=== PATIENT | female | born 1965 | race Caucasian/White ===

== ENCOUNTER → 2017-05-11 | Outpatient (CLI) | payer BC ==
[~2017-05-11] MED LIST: AMBIEN 10MG10 MG PO; AMBIEN5 MG PO; ASPIRIN E.C. 8181 MG PO; B-12100 MCG SL; CO Q-1010 M1 PO; COREG12.5 MG PO; CYMBALTA 20MG20 MG PO; CYMBALTA 30MG30 MG PO; CYMBALTA 60MG60 MG PO; DILAUDID 2MG TAB2 MG PO; EFFEXOR 75M75 MG/TAB PO; FISH OIL1000 MG PO; GLUCOPHAGE XR500 M1 PO; LASIX 20MG TABL20 MG PO; LEXAPRO10 MG PO; LIPITOR 10MG10 MG PO; LORTAB 7.5/5001 TAB PO; LYRICA 150MG C150 MG PO; MACROBID 1100 MG/CAP PO; MAXALT10 MG; MICARDIS HCT 251 TAB PO; MICARDIS20 MG PO; MOBIC15 MG PO; MULTIPLE VITAMI1 CAP PO; NEURONTIN600 MG/TAB PO; PERCOCET 325 MG1 TA2 PO; PERCR 7.5 PO; PREDNISONE20 MG PO; REQUIP 1MG T1 MG/TAB PO; ROPINAROLE PO; SYNTHROID0.125 MG/T PO; ULTRAM 50MG TAB50 MG PO; VALIUM 5MG T5 MG/TAB PO; VENTOLIN0.09 MG IH; VICTOZA6 MG/ML SQ; VITAMIN B125000 MCG PO; VITAMIN E1000 U/CAP PO; XIGDUO10/1000 PO; [UNRECOGNIZED DRUG - CODE] PO; [UNRECOGNIZED DRUG - OTHER] PO
== END ==
LOC: MC.RAD 08:20
DX: Z12.31 Encounter for screening mammogram for malignant neoplasm of breast (principal)

== ENCOUNTER 2017-06-20 22:07 | Inpatient (IN) | payer BC ==
[~2017-06-20] VITALS: Ht 167.6 cm; Wt 139.7 kg
[~2017-06-20 22:07] MED LIST changes: -CYMBALTA 30MG30 MG PO; -CYMBALTA 60MG60 MG PO; -LIPITOR 10MG10 MG PO
[2017-06-20] MEDS ORDERED: LIPITOR 10MG10 MG PO (23:24)
[2017-06-20] MEDS ORDERED: CYMBALTA 60MG60 MG PO (23:25)
[2017-06-20 23:30] LABS: BASO % 0.5 % (0.0-2.0); EOS # 0.2 (0.0-0.7); EOS % 2.9 % (0-4.0); GRAN # 3.2 (1.4-6.5); GRAN % 49.3 % (42.2-75.2); HEMATOCRIT 32.4 % (37.0-47.0); HEMOGLOBIN 11.4 g/dl (12.5-16.0); LYMPH # 2.6 (1.2-3.4); LYMPH % 40.2 % (20.0-51.0); MEAN CELL VOLUME 92 fl (80.0-100.0); MEAN CORPUSCULAR HEMOGLOBIN 32 pg (27.0-31.0); MEAN CORPUSCULAR HGB CONC 35 g/dl (33.0-37.0); MEAN PLATELET VOLUME 9.6 fl (7.4-10.4); MONO # 0.4 (0.1-0.6); MONO % 6.8 % (1.7-9.3); PLATELET COUNT 215 K/mm3 (130-400); RED BLOOD COUNT 3.52 M/mm3 (4.10-5.30); REDCELL DISTRIBUTION WIDTH-CV 14.4 % (11.5-14.5); WHITE BLOOD COUNT 6.5 K/mm3 (4.8-10.8)
[2017-06-20 23:40] LABS: ALBUMIN 4.3 gm/dL (3.5-5.0); BILIRUBIN,TOTAL 0.7 mg/dL (0.0-1.0); CALCIUM 9.2 mg/dL (8.4-10.2); CREATININE, serum 1.24 mg/dL (0.52-1.25); POTASSIUM 3.6 mmol/L (3.4-5.0); TOTAL PROTEIN 7.5 gm/dL (6.4-8.2)
[2017-06-21] VITALS (784 sets, daily range): BP systolic 91–114; BP diastolic 46–64; PULSE 56–93; TEMP 97.5–98.4; O2SAT 76–100
[2017-06-21 00:59] LABS: TROPONIN-I < 0.012 ng/mL (0.000-0.034)
[2017-06-21 01:18] LABS: C-REACTIVE PROTEIN 1.2 mg/dL (0.0-0.9)
[2017-06-21 01:28] LABS: PH 5 (5-8); SQUAMOUS EPITHELIAL 0-2 /hpf; URINE APPEARANCE Hazy; URINE BACTERIA None Seen /hpf; URINE BILIRUBIN Negative (NEGATIVE); URINE BLOOD Negative (NEGATIVE); URINE COLOR Yellow; URINE GLUCOSE 3+ (NEGATIVE); URINE KETONE Negative (NEGATIVE); URINE RBC 0-2 /hpf; URINE UROBILINOGEN Negative (NEGATIVE)
[2017-06-21 01:31] LABS: AMPHETAMINE URINE NEGATIVE; BARBITURATES URINE NEGATIVE; BENZODIAZEPINES URINE NEGATIVE; BUPRENORPHINE URINE NEGATIVE; METHADONE URINE NEGATIVE; OPIATES URINE NEGATIVE; OXYCODONE URINE POSITIVE; PHENCYCLIDINE URINE NEGATIVE; PROPOXYPHENE URINE NEGATIVE; THC CANNABINOIDS URINE NEGATIVE
[2017-06-21 01:33] LABS: URINE WBC 20-50 /hpf
[2017-06-21 02:11] LABS: SALICYLATE < 1.0 mg/dL
[2017-06-21 08:01] LABS: CALCIUM 8.3 mg/dL (8.4-10.2); CREATININE, serum 1.33 mg/dL (0.52-1.25); POTASSIUM 3.6 mmol/L (3.4-5.0)
[2017-06-22] VITALS (16 sets, daily range): BP systolic 92–124; BP diastolic 48–71; PULSE 58–78; TEMP 97.6–98.4
[2017-06-22 09:13] LABS: CEREBROSPINAL TUBE #3; CSF APPEARANCE CLEAR; CSF COLOR COLORLESS
[2017-06-22 09:27] LABS: BASO % 0.3 % (0.0-2.0); EOS # 0.1 (0.0-0.7); EOS % 3.8 % (0-4.0); GRAN # 1.8 (1.4-6.5); GRAN % 51.5 % (42.2-75.2); LYMPH # 1.3 (1.2-3.4); LYMPH % 37.6 % (20.0-51.0); MEAN CELL VOLUME 95 fl (80.0-100.0); MEAN CORPUSCULAR HGB CONC 34 g/dl (33.0-37.0); MEAN PLATELET VOLUME 9.9 fl (7.4-10.4); MONO # 0.2 (0.1-0.6); MONO % 6.8 % (1.7-9.3); PLATELET COUNT 217 K/mm3 (130-400); RED BLOOD COUNT 3.38 M/mm3 (4.10-5.30); REDCELL DISTRIBUTION WIDTH-CV 14.4 % (11.5-14.5); WHITE BLOOD COUNT 3.4 K/mm3 (4.8-10.8)
[2017-06-22 09:28] LABS: HEMATOCRIT 32.2 % (37.0-47.0); HEMOGLOBIN 10.9 g/dl (12.5-16.0); MEAN CORPUSCULAR HEMOGLOBIN 32 pg (27.0-31.0)
[2017-06-22 09:32] LABS: INR 1.1 (0.8-3.0)
[2017-06-22 09:47] LABS: CALCIUM 8.7 mg/dL (8.4-10.2); CREATININE, serum 0.77 mg/dL (0.52-1.25)
[2017-06-23 02:08] VITALS: BP 103/57; PULSE 58; TEMP 97.2
[2017-06-23 04:56] VITALS: BP 130/68; PULSE 65; TEMP 97.2
[2017-06-23 07:19] LABS: BASO % 0.5 % (0.0-2.0); EOS # 0.2 (0.0-0.7); EOS % 4.1 % (0-4.0); GRAN # 2.1 (1.4-6.5); LYMPH # 1.3 (1.2-3.4); LYMPH % 33.3 % (20.0-51.0); MEAN CELL VOLUME 94 fl (80.0-100.0); MEAN CORPUSCULAR HGB CONC 34 g/dl (33.0-37.0); MEAN PLATELET VOLUME 9.8 fl (7.4-10.4); MONO # 0.3 (0.1-0.6); MONO % 7.6 % (1.7-9.3); PLATELET COUNT 222 K/mm3 (130-400); REDCELL DISTRIBUTION WIDTH-CV 14.2 % (11.5-14.5); WHITE BLOOD COUNT 3.9 K/mm3 (4.8-10.8)
[2017-06-23 07:21] LABS: HEMATOCRIT 34.7 % (37.0-47.0); HEMOGLOBIN 11.8 g/dl (12.5-16.0); MEAN CORPUSCULAR HEMOGLOBIN 32 pg (27.0-31.0)
[2017-06-23 08:16] VITALS: BP 113/66; PULSE 62; TEMP 98
[2017-06-23 12:17] VITALS: BP 90/53; PULSE 81; TEMP 97.7
[2017-06-23] MEDS ORDERED: CYMBALTA 30MG30 MG PO (14:01)
[2017-06-24 17:58] LABS: .ANTICARDIOLIPIN IGG <9.4 GPL (())
[2017-06-24 22:56] LABS: .ANTICARDIOLIPIN IGM 14.4 MPL (())
== END 2017-06-23 16:30 | disposition home or self-care (01) | DRG 315 ==
LOC: COL.ER 22:07 → ICU 06-21 01:54 → COL.ER 06-21 01:54 → ICU 06-21 19:13 → MEDICAL 06-21 19:13 → ICU 06-21 19:13 → MEDICAL 06-21 20:50
PROVIDERS: Emergency Medicine; Family Medicine; Nurse Practitioner Family; Psychiatry & Neurology Neurology
PROC: 009U3ZX Drainage of Spinal Canal, Percutaneous Approach, Diagnostic (ICD-10-PCS; principal; 2017-06-22)
PROC: B01B1ZZ Fluoroscopy of Spinal Cord using Low Osmolar Contrast (ICD-10-PCS; 2017-06-22)
DX: I95.9 Hypotension, unspecified (principal); Z68.42 Body mass index [BMI] 45.0-49.9, adult; N17.9 Acute kidney failure, unspecified; H55.00 Unspecified nystagmus; R26.0 Ataxic gait; R42 Dizziness and giddiness; H53.2 Diplopia; I10 Essential (primary) hypertension; E66.9 Obesity, unspecified; E11.43 Type 2 diabetes mellitus with diabetic autonomic (poly)neuropathy; H93.13 Tinnitus, bilateral; Z79.4 Long term (current) use of insulin
CPT/HCPCS: 99223-AI; 99233-AI; 99239; A9585; J0696; J1650; J1815; J1885; J7030

== ENCOUNTER 2018-02-07 11:29 | Emergency (ER) | payer BC ==
[~2018-02-07] VITALS: Ht 167.6 cm; Wt 138.6 kg
[~2018-02-07 11:29] MED LIST changes: +CYMBALTA 30MG30 MG PO; +CYMBALTA 60MG60 MG PO; +LIPITOR 10MG10 MG PO; +PERCOCET 325 MG1 TA3 PO; -PERCR 7.5 PO
[2018-02-07] MEDS ORDERED: LASIX 40MG TABL40 MG PO (11:55)
[2018-02-07] MEDS ORDERED: FLEXERIL 1010 MG/TAB PO (11:56)
[2018-02-07] MEDS ORDERED: ASPIRIN 81M81 MG/TA2 PO (11:57)
[2018-02-07] MEDS ORDERED: MICARDIS HCT 121 TAB PO (11:57)
[2018-02-07 12:06] VITALS: TEMP 97.7
[2018-02-07 12:21] LABS: BASO % 0.5 % (0.0-2.0); EOS # 0.2 (0.0-0.7); EOS % 5.2 % (0-4.0); GRAN % 55.3 % (42.2-75.2); LYMPH # 1.2 (1.2-3.4); LYMPH % 31.9 % (20.0-51.0); MEAN CELL VOLUME 95 fl (80.0-100.0); MEAN CORPUSCULAR HGB CONC 34 g/dl (33.0-37.0); MONO # 0.3 (0.1-0.6); MONO % 6.8 % (1.7-9.3); PLATELET COUNT 218 K/mm3 (130-400); RED BLOOD COUNT 3.67 M/mm3 (4.10-5.30); REDCELL DISTRIBUTION WIDTH-CV 14.1 % (11.5-14.5)
[2018-02-07 12:32] LABS: HEMOGLOBIN 11.8 g/dl (12.5-16.0); MEAN CORPUSCULAR HEMOGLOBIN 32 pg (27.0-31.0)
[2018-02-07 12:33] LABS: ALANINE AMINOTRANSFERASE 42 U/L (9-52); ALBUMIN 4.1 gm/dL (3.5-5.0); ALKALINE PHOSPHATASE 74 U/L (50-136); ANION GAP 13 mmol/L (7-16); AST,SGOT 31 U/L (15-37); BILIRUBIN,TOTAL 0.6 mg/dL (0.0-1.0); BLOOD UREA NITROGEN 23 mg/dL (7-17); CALCIUM 9.1 mg/dL (8.4-10.2); CARBON DIOXIDE 28 mmol/L (22-30); CHLORIDE 99 mmol/L (98-107); CREATININE, serum 0.84 mg/dL (0.52-1.25); GLUCOSE 271 mg/dL (74-106); MAGNESIUM 2.3 mg/dL (1.6-2.3); PHOSPHOROUS 4.9 mg/dL (2.5-4.5); POTASSIUM 4.4 mmol/L (3.4-5.0); SODIUM 139 mmol/L (137-145); TOTAL PROTEIN 7.9 gm/dL (6.4-8.2)
[2018-02-07 12:35] LABS: COLLECTION METHOD CLEAN CATCH
[2018-02-07 12:43] LABS: PH 5 (5-8); SQUAMOUS EPITHELIAL 0-2 /hpf; URINE APPEARANCE Clear; URINE BACTERIA Rare /hpf; URINE BILIRUBIN Negative (NEGATIVE); URINE BLOOD Negative (NEGATIVE); URINE COLOR Yellow; URINE GLUCOSE 3+ (NEGATIVE); URINE KETONE Negative (NEGATIVE); URINE LEUKOCYTE ESTERASE Negative (NEGATIVE); URINE NITRATE Negative (NEGATIVE); URINE PROTEIN(semi-quant) Negative (NEGATIVE); URINE RBC None Seen /hpf; URINE UROBILINOGEN Negative (NEGATIVE)
[2018-02-07 12:46] LABS: TROPONIN-I < 0.012 ng/mL (0.000-0.034)
[2018-02-07 16:00] VITALS: BP 109/68; PULSE 61
[2018-02-08] MEDS ORDERED: PROAIR HFA0.09 MG/AC IH (15:39)
[2018-02-08] MEDS ORDERED: DOXYCYCLINE 10100 MG PO (15:39)
== END 2018-02-07 16:18 | disposition home or self-care (01) ==
LOC: COL.ER 11:29
PROVIDERS: Emergency Medicine
DX: R55 Syncope and collapse (principal); I10 Essential (primary) hypertension; E11.9 Type 2 diabetes mellitus without complications; E03.9 Hypothyroidism, unspecified; E66.9 Obesity, unspecified; G37.9 Demyelinating disease of central nervous system, unspecified; G43.909 Migraine, unspecified, not intractable, without status migrainosus; Z90.49 Acquired absence of other specified parts of digestive tract; Z98.890 Other specified postprocedural states; Z79.84 Long term (current) use of oral hypoglycemic drugs; Z79.82 Long term (current) use of aspirin
CPT/HCPCS: J1885; J7030

== ENCOUNTER → 2019-01-21 | Outpatient (CLI) | payer BC ==
[~2019-01-21] MED LIST changes: +ASPIRIN 81M81 MG/TA2 PO; +DOXYCYCLINE 10100 MG PO; +FLEXERIL 1010 MG/TAB PO; +LASIX 40MG TABL40 MG PO; +MICARDIS HCT 121 TAB PO; +PROAIR HFA0.09 MG/AC IH
== END ==
LOC: ZCOL.LAB 11:51
DX: R07.9 Chest pain, unspecified (principal)

== ENCOUNTER 2019-02-08 10:29 | Emergency (ER) | payer BC ==
[~2019-02-08] VITALS: Ht 167.6 cm; Wt 136.4 kg
[2019-02-08 10:30] VITALS: TEMP 97.8
[2019-02-08] MEDS ORDERED: COREG12.5 MG PO (10:54)
[2019-02-08] MEDS ORDERED: CYMBALTA 60MG60 MG PO (10:55)
[2019-02-08] MEDS ORDERED: MOBIC15 MG PO (10:56)
[2019-02-08] MEDS ORDERED: VICTOZA (10:58)
[2019-02-08] MEDS ORDERED: TRESIBA FL100 UNIT/1 SQ (10:58)
[2019-02-08 11:02] LABS: BASO % 0.6 % (0.0-2.0); EOS # 0.1 (0.0-0.7); EOS % 2.6 % (0-4.0); GRAN # 3.4 (1.4-6.5); GRAN % 66.5 % (42.2-75.2); HEMOGLOBIN 12.2 g/dl (12.5-16.0); LYMPH # 1.2 (1.2-3.4); LYMPH % 23.8 % (20.0-51.0); MEAN CELL VOLUME 94 fl (80.0-100.0); MEAN CORPUSCULAR HEMOGLOBIN 32 pg (27.0-31.0); MEAN CORPUSCULAR HGB CONC 34 g/dl (33.0-37.0); MEAN PLATELET VOLUME 9.6 fl (7.4-10.4); MONO # 0.3 (0.1-0.6); MONO % 6.1 % (1.7-9.3); PLATELET COUNT 268 K/mm3 (130-400); RED BLOOD COUNT 3.82 M/mm3 (4.10-5.30); REDCELL DISTRIBUTION WIDTH-CV 14.8 % (11.5-14.5)
[2019-02-08 11:10] LABS: ALANINE AMINOTRANSFERASE 16 U/L (9-52); ALBUMIN 4.1 gm/dL (3.5-5.0); ALKALINE PHOSPHATASE 90 U/L (50-136); ANION GAP 11 mmol/L (7-16); AST,SGOT 26 U/L (15-37); BILIRUBIN,TOTAL 0.7 mg/dL (0.0-1.0); BLOOD UREA NITROGEN 24 mg/dL (7-17); CALCIUM 9.7 mg/dL (8.4-10.2); CARBON DIOXIDE 29 mmol/L (22-30); CHLORIDE 98 mmol/L (98-107); CREATININE, serum 0.88 (0.52-1.25); GLUCOSE 197 mg/dL (74-106); LIPASE 102 U/L (23-300); SODIUM 138 mmol/L (137-145); TOTAL PROTEIN 7.8 gm/dL (6.4-8.2)
[2019-02-08 11:23] LABS: TROPONIN-I < 0.012 ng/mL (0.000-0.035)
[2019-02-08 11:44] VITALS: BP 96/62; PULSE 73
== END 2019-02-08 12:07 | disposition home or self-care (01) ==
LOC: COL.ER 10:29
PROVIDERS: Emergency Medicine
DX: I47.1 Supraventricular tachycardia (principal); I10 Essential (primary) hypertension; E78.5 Hyperlipidemia, unspecified; E11.9 Type 2 diabetes mellitus without complications; E03.9 Hypothyroidism, unspecified; Z79.84 Long term (current) use of oral hypoglycemic drugs; Z90.49 Acquired absence of other specified parts of digestive tract
CPT/HCPCS: J2405; J7030

== ENCOUNTER → 2019-05-02 | Outpatient (CLI) | payer BC ==
[~2019-05-02] MED LIST changes: +TRESIBA FL100 UNIT/1 SQ; +VICTOZA
== END ==
LOC: COL.RAD 12:11
DX: N95.0 Postmenopausal bleeding (principal)

== ENCOUNTER 2019-07-17 12:15 | Emergency (ER) | payer BC ==
[~2019-07-17] VITALS: Ht 167.6 cm; Wt 140.9 kg
[2019-07-17 12:22] VITALS: TEMP 98.1
[2019-07-17 12:53] LABS: COLLECTION METHOD CLEAN CATCH
[2019-07-17 13:01] LABS: MUCOUS Present /lpf; PH 5 (5-8); SQUAMOUS EPITHELIAL 0-2 /hpf; URINE APPEARANCE Clear; URINE BACTERIA None Seen /hpf; URINE BILIRUBIN Negative (NEGATIVE); URINE BLOOD Negative (NEGATIVE); URINE COLOR Yellow; URINE GLUCOSE 3+ (NEGATIVE); URINE KETONE Negative (NEGATIVE); URINE LEUKOCYTE ESTERASE Trace (NEGATIVE); URINE NITRATE Negative (NEGATIVE); URINE PROTEIN(semi-quant) Negative (NEGATIVE); URINE UROBILINOGEN Negative (NEGATIVE)
[2019-07-17 13:12] LABS: BASO % 0.3 % (0.0-2.0); EOS # 0.3 (0.0-0.7); EOS % 3.9 % (0-4.0); GRAN % 72.7 % (42.2-75.2); HEMOGLOBIN 12.2 g/dl (12.5-16.0); LYMPH # 1.2 (1.2-3.4); LYMPH % 17.5 % (20.0-51.0); MEAN CELL VOLUME 96 fl (80.0-100.0); MEAN CORPUSCULAR HEMOGLOBIN 33 pg (27.0-31.0); MEAN CORPUSCULAR HGB CONC 34 g/dl (33.0-37.0); MEAN PLATELET VOLUME 9.7 fl (7.4-10.4); MONO # 0.4 (0.1-0.6); MONO % 5.5 % (1.7-9.3); PLATELET COUNT 232 K/mm3 (130-400); RED BLOOD COUNT 3.75 M/mm3 (4.10-5.30); REDCELL DISTRIBUTION WIDTH-CV 14.8 % (11.5-14.5)
[2019-07-17 13:20] LABS: HEMATOCRIT 35.8 % (37.0-47.0)
[2019-07-17 13:27] LABS: ALBUMIN 4.5 gm/dL (3.5-5.0); BILIRUBIN,TOTAL 0.6 mg/dL (0.0-1.0); C-REACTIVE PROTEIN 1.9 mg/dL (0.0-0.9); CALCIUM 9.6 mg/dL (8.4-10.2); CREATININE, serum 0.88 (0.52-1.25)
[2019-07-17] MEDS ORDERED: LIDODERM 5% PATC1 EA TP (14:33)
[2019-07-17 14:45] VITALS: BP 123/60; PULSE 64
== END 2019-07-17 14:55 | disposition home or self-care (01) ==
LOC: COL.ER 12:15
PROVIDERS: Physician Assistant
DX: M54.5 Low back pain (principal); G89.29 Other chronic pain; E11.9 Type 2 diabetes mellitus without complications; I10 Essential (primary) hypertension; E03.9 Hypothyroidism, unspecified; E78.5 Hyperlipidemia, unspecified; Z79.4 Long term (current) use of insulin; Z79.82 Long term (current) use of aspirin
CPT/HCPCS: J1170; J1885; J2405; J7030

== ENCOUNTER → 2019-08-04 | Outpatient (CLI) | payer BC ==
[~2019-08-04] MED LIST changes: +LIDODERM 5% PATC1 EA TP
== END ==
LOC: DIA.ED 11:53
DX: E11.40 Type 2 diabetes mellitus with diabetic neuropathy, unspecified (principal); E66.9 Obesity, unspecified; E78.5 Hyperlipidemia, unspecified; E03.9 Hypothyroidism, unspecified; I10 Essential (primary) hypertension
CPT/HCPCS: G0108

== ENCOUNTER → 2019-08-29 | Outpatient (CLI) | payer BC | LOC: DIA.ED 09:34 | DX: E11.40 Type 2 diabetes mellitus with diabetic neuropathy, unspecified (principal); E78.5 Hyperlipidemia, unspecified; I10 Essential (primary) hypertension; E03.9 Hypothyroidism, unspecified; E66.9 Obesity, unspecified | CPT/HCPCS: G0108 ==

== ENCOUNTER → 2020-10-10 | Outpatient (CLI) | payer BC | LOC: MC.RAD 15:00 | DX: Z12.31 Encounter for screening mammogram for malignant neoplasm of breast (principal) ==

== ENCOUNTER 2021-06-01 21:25 | Emergency (ER) | payer BC ==
[~2021-06-01] VITALS: Ht 167.6 cm; Wt 136.4 kg
[2021-06-01 21:52] VITALS: TEMP 97.8
[2021-06-01 22:30] LABS: BASO % 0.3 % (0.0-2.0); EOS # 0.3 (0.0-0.7); EOS % 4.2 % (0-4.0); GRAN # 3.8 (1.4-6.5); GRAN % 64.8 % (42.2-75.2); HEMOGLOBIN 11.8 g/dl (12.5-16.0); LYMPH # 1.4 (1.2-3.4); LYMPH % 23.1 % (20.0-51.0); MEAN CELL VOLUME 93 fl (80.0-100.0); MEAN CORPUSCULAR HEMOGLOBIN 31 pg (27.0-31.0); MEAN CORPUSCULAR HGB CONC 34 g/dl (33.0-37.0); MEAN PLATELET VOLUME 9.6 fl (7.4-10.4); MONO # 0.4 (0.1-0.6); MONO % 7.3 % (1.7-9.3); PLATELET COUNT 231 K/mm3 (130-400); RED BLOOD COUNT 3.77 M/mm3 (4.10-5.30)
[2021-06-01] MEDS ORDERED: BASAGLAR K100 UNIT/1 SQ (22:40)
[2021-06-01] MEDS ORDERED: OMEGA MINT FISH1 SGL (22:42)
[2021-06-01] MEDS ORDERED: MAXALT10 MG (22:45)
[2021-06-01 23:05] LABS: ALANINE AMINOTRANSFERASE 21 U/L (4-34); ALBUMIN 4.1 gm/dL (3.5-5.0); ALKALINE PHOSPHATASE 72 U/L (50-136); ANION GAP 11 mmol/L (7-16); AST,SGOT 26 U/L (15-37); BILIRUBIN,TOTAL 0.6 mg/dL (0.0-1.0); BLOOD UREA NITROGEN 25 mg/dL (7-17); CALCIUM 9.4 mg/dL (8.4-10.2); CARBON DIOXIDE 26 mmol/L (22-30); CHLORIDE 97 mmol/L (98-107); CREATININE, serum 1.03 (0.52-1.25); GLUCOSE 247 mg/dL (74-106); POTASSIUM 3.5 mmol/L (3.4-5.0); SODIUM 134 mmol/L (137-145); TOTAL PROTEIN 7.6 gm/dL (6.4-8.2)
[2021-06-01 23:20] LABS: INR 1.1 (0.8-3.0); PROTHROMBIN TIME 12.2 SECONDS (9.7-12.8)
[2021-06-01 23:21] LABS: TROPONIN-I < 0.012 ng/mL (0.000-0.035)
[2021-06-01 23:23] LABS: PARTIAL THROMBOPLASTIN TIME 29.1 SECONDS (26.0-37.0)
[2021-06-02 00:54] VITALS: BP 117/60; PULSE 70
== END 2021-06-02 00:57 | disposition home or self-care (01) ==
LOC: COL.ER 21:25
PROVIDERS: Emergency Medicine
DX: S09.90XA Unspecified injury of head, initial encounter (principal); M79.641 Pain in right hand; R07.81 Pleurodynia; R10.31 Right lower quadrant pain; R10.11 Right upper quadrant pain; E11.42 Type 2 diabetes mellitus with diabetic polyneuropathy; Z79.4 Long term (current) use of insulin; W01.198A Fall on same level from slipping, tripping and stumbling with subsequent striking against other object, initial encounter
CPT/HCPCS: J2270; J2405; J3360; J7030; Q9967

== ENCOUNTER 2022-07-16 18:22 | Emergency (ER) | payer BC ==
[~2022-07-16] VITALS: Ht 167.6 cm; Wt 136.4 kg
[~2022-07-16 18:22] MED LIST changes: +BASAGLAR K100 UNIT/1 SQ; +OMEGA MINT FISH1 SGL
[2022-07-16 20:51] VITALS: BP 112/70; PULSE 62; TEMP 98.1
== END 2022-07-16 20:51 | disposition home or self-care (01) ==
LOC: COL.ER 18:22
DX: T78.3XXA Angioneurotic edema, initial encounter (principal); L08.9 Local infection of the skin and subcutaneous tissue, unspecified
CPT/HCPCS: J1200; J2930; J7030

== ENCOUNTER 2023-08-10 10:15 | Observation (INO) | payer BC ==
[2023-08-10] VITALS (7 sets, daily range): BP systolic 92–120; BP diastolic 54–78; PULSE 57–70; TEMP 93.8–98.6
[~2023-08-10] VITALS: Ht 167.6 cm; Wt 129.5 kg
[~2023-08-10 10:15] MED LIST changes: +ADVOCATE BLOOD1 EAC1 MC; +CEPHALEXIN500 M1 PO; +FLAGYL500 MG PO; +LEVAQUIN 5500 MG/TA1 PO; +LIPITOR 40MG TA40 MG PO; +LYRICA 75MG CAP75 MG PO; +MAXALT10 MG PO; +MOUNJARO7.5 MG/0.5 SQ; +MULTI VITAMINS1 TAB PO; +OMEGA-31 SGL PO; +PRINIVIL5 MG PO; -REQUIP 1MG T1 MG/TAB PO; +REQUIP2 MG PO; +ROXICODONE 55 MG/TAB PO; +SYNTHROID0.1 MG/TAB PO; +XIGDUO5/1000 PO
[2023-08-10 10:58] LABS: BASO % 0.4 % (0.0-2.0); EOS # 0.3 K/mm3 (0.0-0.7); EOS % 5.6 % (0.0-4.0); GRAN # 2.9 K/mm3 (1.4-6.5); GRAN % 53.5 % (42.2-75.2); HEMOGLOBIN 10.5 g/dl (12.5-16.0); LYMPH # 1.7 K/mm3 (1.2-3.4); LYMPH % 32.3 % (20.0-51.0); MEAN CELL VOLUME 90 fl (80.0-100.0); MEAN CORPUSCULAR HEMOGLOBIN 30 pg (27-31); MEAN CORPUSCULAR HGB CONC 33 g/dl (33.0-37.0); MEAN PLATELET VOLUME 9.8 fl (7.4-10.4); MONO # 0.4 K/mm3 (0.1-0.6); PLATELET COUNT 231 K/mm3 (130-400); RED BLOOD COUNT 3.56 M/mm3 (4.10-5.30); REDCELL DISTRIBUTION WIDTH-CV 14.5 % (11.5-14.5)
[2023-08-10 11:00] LABS: HEMATOCRIT 31.9 % (37.0-47.0)
[2023-08-10 11:14] LABS: ALBUMIN 3.2 gm/dL (3.5-5.0); BILIRUBIN,TOTAL 0.5 mg/dL (0.2-1.2); CALCIUM 9.1 mg/dL (8.4-10.2); CREATININE, serum 1.14 mg/dL (0.57-1.11); POTASSIUM 4.5 mmol/L (3.5-4.5); TOTAL PROTEIN 7.1 gm/dL (6.2-8.1)
[2023-08-10] MEDS ORDERED: COZAAR 25MG25 MG/TAB PO (13:53)
[2023-08-10] MEDS ORDERED: LEVAQUIN 750MG750 M1 PO (13:53)
[2023-08-10] MEDS ORDERED: OMNICEF 300MG300 MG PO (13:53)
[2023-08-10] MEDS ORDERED: IRON TABLETS325 MG PO (13:54)
[2023-08-10] MEDS ORDERED: B-121000 MCG PO (13:55)
[2023-08-10 14:41] LABS: COLLECTION METHOD CLEAN CATCH
[2023-08-10 14:56] LABS: URINE APPEARANCE Hazy (CLEAR/HAZY); URINE COLOR Yellow (YELLOW)
[2023-08-10 14:57] LABS: URINE BLOOD 2+ (NEGATIVE); URINE GLUCOSE 3+ (NEGATIVE); URINE KETONE Negative (NEGATIVE); URINE NITRATE Negative (NEGATIVE); URINE PROTEIN(semi-quant) Negative (NEGATIVE); URINE UROBILINOGEN 0.2 E.U/dL (0.2-1.0)
[2023-08-10 15:19] LABS: SQUAMOUS EPITHELIAL 0-2 /hpf (0-10)
[2023-08-10 15:20] LABS: BUDDING YEAST Present (NOT PRESENT); URINE BACTERIA Moderate /hpf (NONE SEEN)
--- NOTE | 2023-08-10 18:00 | NUR ---
R FOOT WOUND DRESSING CHANGED BY THIS RN Y SUPPLIES PROVIDED BY [facility] (WHAT SHE IS GIVEN BY THE WOUND CLINIC). WOUND HAD COPIOUS AMOUNTS OF PURULENT DRAINAGE, PER PATIENTS DAUGHTER THIS IS HOW IT USUALLY IS. PATIENT STATED SHE SEES WOUND CLINIC THURSDAY AND THURSDAY FOR DRESSING CHANGES AND CAUTERIZATION, AND IS TO HAVE SX ON THURSDAY TO THIS FOOT.
--- NOTE | 2023-08-10 18:15 | NUR ---
PATIENT IS AWAKE AND ALERT, SITTING UP IN BED. PATIENTS DAUGHTER AND AT BEDSIDE. PATIENT DENIES ANY NEEDS OR COMPLAINTS AT THIS TIME. TISHA LIGHT WITHIN REACH. 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
--- NOTE | 2023-08-10 19:22 | NUR ---
CARTER CARRASCO INFORMED PATIENT IS REQUESTING HER HOME MEDICATIONS BE RESUMED
--- NOTE | 2023-08-10 20:00 | NUR ---
Assessment complete. A&Ox4. Denies pain/nausea/shortness of breath. VS lsmvto-xddhqqpigjt-tgrqavcc aware. TELE reporting SR. Left forearm IV with D10NS@100ml/hr infusing without difficulty. INT to right AC flushes without difficulty. Dressing to right foot-changed by day shift-CDI. 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 Plan of care discussed for this shift to include meds/pain control/calling for questions/concerns. Verbalizes understanding. Call light in reach. Will monitor.
[2023-08-11] VITALS (14 sets, daily range): BP systolic 100–124; BP diastolic 48–68; PULSE 64–82; TEMP 96.7–99
--- NOTE | 2023-08-11 00:20 | NUR ---
Spoke to DANILO Rizvi about continuous blood sugars in the 70s even with D10 infusing and snacks. New orders to continue D10 and hold NS.
--- NOTE | 2023-08-11 05:45 | NUR ---
Patient had a uneventful night. Denied pain/shortness of breath. DId c/o some nausea and received one dose of zofran with good results. Blood sugars 70-100. D10@100mls/hr to left AC infusing without difficulty. Denies current needs. Call light in reach. Will monitor.
[2023-08-11 07:36] LABS: BASO % 0.4 % (0.0-2.0); EOS # 0.3 K/mm3 (0.0-0.7); GRAN % 71.2 % (42.2-75.2); LYMPH % 17.9 % (20.0-51.0); MEAN CELL VOLUME 88 fl (80.0-100.0); MEAN CORPUSCULAR HGB CONC 33 g/dl (33.0-37.0); MEAN PLATELET VOLUME 10.3 fl (7.4-10.4); MONO # 0.3 K/mm3 (0.1-0.6); MONO % 5.3 % (1.7-9.3); PLATELET COUNT 247 K/mm3 (130-400); RED BLOOD COUNT 3.31 M/mm3 (4.10-5.30); REDCELL DISTRIBUTION WIDTH-CV 14.6 % (11.5-14.5)
[2023-08-11 07:38] LABS: HEMATOCRIT 29.1 % (37.0-47.0); HEMOGLOBIN 9.6 g/dl (12.5-16.0); MEAN CORPUSCULAR HEMOGLOBIN 29 pg (27-31)
--- NOTE | 2023-08-11 07:45 | NUR ---
Pt alert and up in chair, Telemetry on, HR regular. Lt. foot 2+ pitting edema. Lt foot in a boot, diabetic sock and KELVIN hose on. Rt foot has an taylor wrap drsg, CDI. Cap refill>3 sec, Rt foot in a Can boot. Pt reports pain 7/10 Describes it as "numbness and burning" to bilateral hands and feet. Pt has hx of neuropathy. Pain reported to nurse. D10 infusing @100mL/hr to Lt forearm. INT to Rt forearm, intact and no redness.
[2023-08-11 08:14] LABS: ALBUMIN 2.8 gm/dL (3.5-5.0); CALCIUM 8.3 mg/dL (8.4-10.2); CREATININE, serum 0.91 mg/dL (0.57-1.11); MAGNESIUM 1.9 mg/dL (1.6-2.6); PHOSPHOROUS 3.9 mg/dL (2.3-4.7); POTASSIUM 4.8 mmol/L (3.5-4.5)
--- NOTE | 2023-08-11 10:44 | NUR ---
[employer] Machine Laborer met with patient to discuss discharge planning. Patient lives in [place] with her , Kyrie (ph#[phone]) and her two children Thelma (ph#[phone]) and Uli. Patient sees Dr. Teixeira for primary care and obtains medications from [facility]. Patient had an insurance change about a month ago but that they still "do okay" with affording medications despite the change. Patient has been using a wheelchair for mobility outside of the home due to a sore on her foot that she will be having surgery on this Thursday. Patient follows with a local production machine shop supervisor for this issue. Patient is independent with mobility and ADLS at home. Patient has DPOA-HC in EMR that designates Kyrie and Thelma. Patient plans to return home at time of discharge. Discharge Plan: Home
--- NOTE | 2023-08-11 10:51 | NUR ---
PT DISCONNECTED FROM IV FLUIDS. PT IS A&OX4 SITTING IN RECLINER TALKING ON PHONE. NO COMPLAINTS OF DISCOMFORT AT THIS TIME. NO SIGNS OR SYMPTOMS OF HYPOGLYCEMIA. GLUCOSE CHECKS ORDERED Q4 HOURS, LAST CHECK WAS 108.
[2023-08-11] MEDS ORDERED: RITE AID GLUCOSE4 G1 PO (10:52)
[2023-08-11] MEDS ORDERED: COREG 3.123.125 MG/T PO (10:53)
--- NOTE | 2023-08-11 11:40 | NUR ---
Initial visit: Change Consultant stopped by room on rounds. Pt was resting and content. Pt has no needs right now. Change Consultant will follow up as needed.
--- NOTE | 2023-08-11 17:36 | NUR ---
ALL DISCHARGE INSTRUCTIONS REVIEWED WITH PT, ALL QUESTIONS AND CONCERNS ANSWERED. IV SITES DISCONTINUED, CATHETER TIP INTACT. AND DAUGHTER AT THE BEDSIDE. PT ESCORTED OUT BY PCT AND FAMILY. ALL PERSONAL BELONGINGS TAKEN WITH PT.
== END 2023-08-11 15:40 | disposition home or self-care (01) ==
LOC: COL.ER 10:15 → MEDICAL 13:10
PROVIDERS: Nurse Practitioner; ADMIT Internal Medicine
DX: E11.649 Type 2 diabetes mellitus with hypoglycemia without coma (principal); I95.9 Hypotension, unspecified; I10 Essential (primary) hypertension; E03.9 Hypothyroidism, unspecified; Z79.4 Long term (current) use of insulin; Z79.890 Hormone replacement therapy; Z79.899 Other long term (current) drug therapy; Z79.82 Long term (current) use of aspirin
CPT/HCPCS: G0378; J2405; J7030; J7042; J7131

== ENCOUNTER → 2023-12-01 | Outpatient (CLI) | payer BC ==
[~2023-12-01] MED LIST changes: +B-121000 MCG PO; +COREG 3.123.125 MG/T PO; +COZAAR 25MG25 MG/TAB PO; +IRON TABLETS325 MG PO; +LEVAQUIN 750MG750 M1 PO; +OMNICEF 300MG300 MG PO; +RITE AID GLUCOSE4 G1 PO
== END ==
LOC: MC.RAD 09:27
DX: Z12.31 Encounter for screening mammogram for malignant neoplasm of breast (principal)